=== PATIENT | female | born 1990 | race Caucasian/White ===

== ENCOUNTER 2016-11-11 21:13 | Inpatient (IN) | payer BC, OTHER ==
[~2016-11-11] VITALS: Ht 157.5 cm; Wt 56.8 kg
[~2016-11-11 21:13] MED LIST: PREN1TAB60 PO
[2016-11-11 23:47] LABS: ASPARTATE AMINO TRANSFERASE 957 U/L (15-37); BLOOD UREA NITROGEN 11 mg/dL (7-18)
[2016-11-12] MEDS ORDERED: SODIUM CHLORIDE FLUSH 10ML SYR IVF ONE (01:00)
[2016-11-12] MEDS ORDERED: SODIUM CHLORIDE 0.9% 1,000ML IVBOLUS ONE (01:00)
[2016-11-12 02:36] VITALS: BP 143/82
[2016-11-12] MEDS: ONDANSETRON 2MG/ML, 2ML IVPush PRN ×2 (02:45→23:52)
[2016-11-12] MEDS: NS + 20MEQ KCL 1,000 ML IV SCH ×2 (03:32→14:58)
[2016-11-12 05:41] LABS: BLOOD UREA NITROGEN 10 mg/dL (7-18)
[2016-11-12 05:55] LABS: ASPARTATE AMINO TRANSFERASE 694 U/L (15-37)
[2016-11-12 08:00] VITALS: BP 143/82
[2016-11-12] MEDS: CEFTRIAXONE PMX 1GM/50ML 50 ML IV SCH (12:42)
[2016-11-12 13:32] VITALS: BP 129/84
[2016-11-12] MEDS ORDERED: FENTANYL PF 250 MCG/5ML ONE (18:57)
[2016-11-12] MEDS ORDERED: MIDAZOLAM 1 MG/ML, 2ML ONE (18:57)
[2016-11-12] MEDS ORDERED: BUPIVACAINE/PF-EPI 0.5% 1:200K ONE (19:01)
[2016-11-12] MEDS ORDERED: ROCURONIUM 10 MG/ML ONE (19:10)
[2016-11-12] MEDS ORDERED: PROPOFOL 10 MG/ML, 20ML ONE (19:10)
[2016-11-12] MEDS ORDERED: DEXAMETHASONE 4 MG/ML, 1ML ONE (19:10)
[2016-11-12] MEDS ORDERED: CEFOTETAN 1 GM ONE (19:10)
[2016-11-12] MEDS ORDERED: ONDANSETRON 2MG/ML, 2ML ONE ×2 (19:10→20:08)
[2016-11-12] MEDS ORDERED: SUCCINYLCHOLINE 20 MG/ML, 10ML ONE (19:10)
[2016-11-12] MEDS ORDERED: OMNIPAQUE 350 MG/ML, 50 ML BOTTLE IV ONE ×2 (19:30→19:35)
[2016-11-12] MEDS ORDERED: BUPIVACAINE/PF-EPI 0.5% 1:200K INFIL ONE (19:30)
[2016-11-12] MEDS ORDERED: ACETAMINOPHEN 325 MG TABLET PO PRN (20:00)
[2016-11-12] MEDS ORDERED: LABETALOL 5MG/ML, 20ML IV PRN (20:00)
[2016-11-12] MEDS ORDERED: hydrALAzine 20 MG/ML, 1ML IV PRN (20:00)
[2016-11-12] MEDS ORDERED: METOCLOPRAMIDE 5 MG/ML, 2ML IV PRN (20:00)
[2016-11-12] MEDS ORDERED: OXYcodone 5 MG/5 ML ORAL.SOL UDC PO PRN (20:00)
[2016-11-12] MEDS ORDERED: ONDANSETRON 2MG/ML, 2ML IVPush PRN (20:00)
[2016-11-12] MEDS ORDERED: HYDROmorphone 2 MG/ML, 1ML ONE (20:08)
[2016-11-12] MEDS ORDERED: FENTANYL PF 100 MCG/2ML ONE (20:08)
[2016-11-12] MEDS: FENTANYL PF 100 MCG/2ML IV PRN ×2 (20:10→20:20)
[2016-11-12] MEDS: HYDROmorphone 1 MG/ML, 1ML IV PRN ×4 (20:15→21:45)
[2016-11-12] MEDS ORDERED: OXYcodone 5 MG/5 ML ORAL.SOL UDC ONE (22:16)
[2016-11-13 02:30] VITALS: BP 130/75
[2016-11-13] MEDS: morphine SULFATE 10 MG/ML, 1ML IVPush PRN ×4 (03:02→22:35)
[2016-11-13 05:07] LABS: BLOOD UREA NITROGEN 7 mg/dL (7-18)
[2016-11-13 05:16] LABS: ASPARTATE AMINO TRANSFERASE 327 U/L (15-37)
[2016-11-13] MEDS: ONDANSETRON 2MG/ML, 2ML IVPush PRN ×2 (06:16→09:16)
[2016-11-13 07:50] VITALS: BP 116/71
[2016-11-13] MEDS: CEFTRIAXONE PMX 1GM/50ML 50 ML IV SCH (12:57)
[2016-11-13 13:28] VITALS: BP 126/73
[2016-11-13 18:47] VITALS: BP 124/80
[2016-11-14 02:23] VITALS: BP 120/69
[2016-11-14 06:00] LABS: ASPARTATE AMINO TRANSFERASE 196 U/L (15-37); BLOOD UREA NITROGEN 8 mg/dL (7-18)
[2016-11-14 07:49] VITALS: BP 134/84
[2016-11-14] MEDS ORDERED: FENTANYL PF 100 MCG/2ML ONE (07:53)
[2016-11-14] MEDS ORDERED: MIDAZOLAM 1 MG/ML, 2ML ONE (07:53)
[2016-11-14] MEDS ORDERED: HYDROmorphone 2 MG/ML, 1ML ONE (08:14)
[2016-11-14] MEDS ORDERED: OXYcodone 5 MG/5 ML ORAL.SOL UDC ONE (08:49)
[2016-11-14] MEDS ORDERED: INDOMETHACIN 50 MG SUPP.RECT ONE (08:49)
[2016-11-14] MEDS ORDERED: OMNIPAQUE 350 MG/ML, 50 ML BOTTLE ONE (09:12)
[2016-11-14] MEDS ORDERED: INDOMETHACIN 50 MG SUPP.RECT PR ONE (09:30)
[2016-11-14] MEDS ORDERED: LACTATED RINGERS 1,000 ML IVBOLUS ONE (09:30)
[2016-11-14] MEDS: ONDANSETRON 2MG/ML, 2ML IVPush PRN (11:29)
[2016-11-14] MEDS: CEFTRIAXONE PMX 1GM/50ML 50 ML IV SCH (11:29)
[2016-11-14 12:57] VITALS: BP 113/69
[2016-11-14] MEDS: morphine SULFATE 10 MG/ML, 1ML IVPush PRN ×2 (14:19→20:27)
[2016-11-14 20:13] VITALS: BP 135/92
[2016-11-15 03:00] VITALS: BP 115/73
[2016-11-15] MEDS: morphine SULFATE 10 MG/ML, 1ML IVPush PRN (04:51)
[2016-11-15 05:05] LABS: ASPARTATE AMINO TRANSFERASE 118 U/L (15-37); BLOOD UREA NITROGEN 5 mg/dL (7-18)
[2016-11-15] MEDS ORDERED: ASA/APAP/ CAFFEINE TABLET PO PRN (05:30)
[2016-11-15 07:25] VITALS: BP 133/83
[2016-11-15] MEDS ORDERED: TRAM50TA2 PO (09:50)
[2016-11-15] MEDS ORDERED: ONDA4TAB13 SL (09:50)
[2016-11-15] MEDS: CEFTRIAXONE PMX 1GM/50ML 50 ML IV SCH (13:19)
== END 2016-11-15 14:19 | disposition home or self-care (01) | DRG 418 ==
LOC: ED 11-12 00:56 → EDIP 11-12 01:06 → SUATTDRO 11-12 01:35 → 3NE 11-12 02:14
PROC: BF101ZZ Fluoroscopy of Bile Ducts using Low Osmolar Contrast (ICD-10-PCS; 2016-11-12)
PROC: 0FT44ZZ Resection of Gallbladder, Percutaneous Endoscopic Approach (ICD-10-PCS; principal; 2016-11-12 18:30)
PROC: 0FC98ZZ Extirpation of Matter from Common Bile Duct, Via Natural or Artificial Opening Endoscopic (ICD-10-PCS; 2016-11-14)
PROC: BF131ZZ Fluoroscopy of Gallbladder and Bile Ducts using Low Osmolar Contrast (ICD-10-PCS; 2016-11-14)
DX: K80.60 Calculus of gallbladder and bile duct with cholecystitis, unspecified, without obstruction (principal); N39.0 Urinary tract infection, site not specified; G43.909 Migraine, unspecified, not intractable, without status migrainosus; Z79.899 Other long term (current) drug therapy; Z91.040 Latex allergy status
CPT/HCPCS: 36415; 74020; 74181; 74300; 74328; 76700; 80053; 81001; 83690; 84703; 85025; 85610; 86677; 87086; 88304; 96360; J0696; J1100; J1170; J2250; J2405; J2704; J3010; J3480; Q9967; J0330; J2270; J7030; J7120; S0074

== ENCOUNTER 2018-09-14 10:30 | Inpatient (IN) | payer BC, OTHER ==
[~2018-09-14] VITALS: Ht 157.5 cm; Wt 72.7 kg
[~2018-09-14 10:30] MED LIST changes: +ONDA4TAB13 SL; +TRAM50TA2 PO
[2018-09-14] MEDS: D5%-LACTATED RINGERS 1,000 ML IV SCH ×2 (10:57→18:57)
[2018-09-14] MEDS ORDERED: OXYTOCIN 30U/ 0.9% NaCL 500ML 500 ML IV ONE (10:57)
[2018-09-14] MEDS ORDERED: CALCIUM CARBONATE 500 MG TAB.CHEW PO PRN (11:00)
[2018-09-14] MEDS ORDERED: TERBUTALINE 1 MG/ML, 1ML IVPush PRN (11:00)
[2018-09-14] MEDS ORDERED: ONDANSETRON 2MG/ML, 2ML IVPush PRN (11:00)
[2018-09-14] MEDS ORDERED: FENTANYL PF 100 MCG/2ML IV PRN (11:00)
[2018-09-14] MEDS ORDERED: FENTANYL PF 100 MCG/2ML IVPush PRN (11:00)
[2018-09-14 11:13] VITALS: BP 143/100
[2018-09-14 11:26] LABS: BASOPHILS # (AUTO) 0.02 x10^3/uL (0-0.1); BASOPHILS % (AUTO) 0 % (0-1); EOSINOPHILS # (AUTO) 0.02 x10^3/uL (0-0.4); EOSINOPHILS % (AUTO) 0 % (1-7); LYMPHOCYTES % (AUTO) 20 % (22-44); MD NO; MEAN CORPUSCULAR HEMOGLOBIN 29.8 pg (27.0-34.8); MEAN CORPUSCULAR HGB CONC 33.9 g/dL (32.4-35.8); MEAN CORPUSCULAR VOLUME 87.7 fL (80-100); MEAN PLATELET VOLUME 8.7 fL (7.4-10.4); MONOCYTES # (AUTO) 0.47 x10^3/uL (0.2-0.8); MONOCYTES % (AUTO) 5 % (2-9); NEUTROPHILS # (AUTO) 6.51 x10^3/uL (1.8-6.8); NEUTROPHILS % (AUTO) 75 % (42-75); PLATELET COUNT 196 x10^3/uL (130-400); RED BLOOD COUNT 4.79 x10^6/uL (3.82-5.3); RED CELL DISTRIBUTION WIDTH 13.2 % (9.6-15.2)
[2018-09-14 11:34] LABS: ALBUMIN 2.8 g/dL (3.4-5.0); ANION GAP 6 mmol/L (5-15); CALCIUM 8.7 mg/dL (8.5-10.1); CHLORIDE 109 mmol/L (98-107)
[2018-09-14 11:38] LABS: ALANINE AMINOTRANSFERASE 15 U/L (12-78); ALKALINE PHOSPHATASE 187 U/L (45-117); BILIRUBIN,TOTAL 0.7 mg/dL (0.2-1.0); CREATININE 0.49 mg/dL (0.55-1.02); TOTAL PROTEIN 6.2 g/dL (6.4-8.2)
[2018-09-14] MEDS: LACTATED RINGERS 1,000 ML IV SCH ×2 (11:45→18:57)
[2018-09-14 11:47] VITALS: BP 147/98
[2018-09-14] MEDS ORDERED: NEWBORN KIT ONE (12:08)
[2018-09-14] MEDS ORDERED: LIDOCAINE 1%, 20ML ONE (12:08)
[2018-09-14] MEDS ORDERED: MISOPROSTOL 200 MCG TABLET ONE (12:08)
[2018-09-14] MEDS ORDERED: OXYTOCIN 30U/ 0.9% NaCL 500ML 500 ML ONE ×2 (12:09→17:23)
[2018-09-14] MEDS ORDERED: OXYTOCIN 30U/ 0.9% NaCL 500ML 500 ML IV PRN (12:10)
[2018-09-14 12:34] LABS: MICROSCOPIC INDICATED
[2018-09-14 12:40] LABS: PROTEIN/CREATININE RATIO,URINE < 233 (0-200); TOTAL PROTEIN,URINE RANDOM < 5 mg/dL (0-12)
[2018-09-14 13:45] LABS: AMPHETAMINE SCREEN, URINE Negative (Negative); BARBITURATE SCREEN, URINE Negative (Negative); BENZODIAZEPINE SCREEN, URINE Negative (Negative); CANNABINOID SCREEN, URINE Negative (Negative); COCAINE SCREEN, URINE Negative (Negative); METHADONE SCREEN, URINE Negative (Negative); OPIATE SCREEN, URINE Negative (Negative)
[2018-09-14] MEDS ORDERED: OXYTOCIN 30U/ 0.9% NaCL 500ML 500 ML IV SCH (17:15)
[2018-09-14] MEDS ORDERED: ACETAMINOPHEN 325 MG TABLET PO PRN (17:30)
[2018-09-14] MEDS ORDERED: MISOPROSTOL 200 MCG TABLET PR PRN (17:30)
[2018-09-14] MEDS ORDERED: OXYcodone/APAP 5/325MG TABLET PO PRN (17:30)
[2018-09-14] MEDS ORDERED: OXYcodone IR 5MG TABLET PO PRN (17:30)
[2018-09-14] MEDS ORDERED: METOCLOPRAMIDE 5 MG/ML, 2ML IV PRN (17:30)
[2018-09-14] MEDS ORDERED: ONDANSETRON 2MG/ML, 2ML IV PRN (17:30)
[2018-09-14] MEDS ORDERED: CARBOPROST TROMETHAMINE 250 MCG/ML, 1ML IM PRN (17:30)
[2018-09-14] MEDS ORDERED: DOCUSATE 100 MG CAPSULE PO PRN (17:30)
[2018-09-14] MEDS ORDERED: BISACODYL 10 MG SUPP PR PRN (17:30)
[2018-09-14] MEDS ORDERED: IBUPROFEN 600 MG TABLET PO PRN (17:30)
[2018-09-14 19:15] VITALS: BP 146/82
[2018-09-14] MEDS: IBUPROFEN 800 MG TABLET PO PRN (19:45)
[2018-09-15 00:48] VITALS: BP 122/75
[2018-09-15 04:10] VITALS: BP 124/74
[2018-09-15 05:01] LABS: BASOPHILS # (AUTO) 0.03 x10^3/uL (0-0.1); BASOPHILS % (AUTO) 0 % (0-1); EOSINOPHILS # (AUTO) 0.01 x10^3/uL (0-0.4); EOSINOPHILS % (AUTO) 0 % (1-7); LYMPHOCYTES # (AUTO) 2.64 x10^3/uL (1-3.4); LYMPHOCYTES % (AUTO) 20 % (22-44); MD NO; MEAN CORPUSCULAR HEMOGLOBIN 30.5 pg (27.0-34.8); MEAN CORPUSCULAR HGB CONC 34.2 g/dL (32.4-35.8); MEAN CORPUSCULAR VOLUME 89.1 fL (80-100); MEAN PLATELET VOLUME 8.6 fL (7.4-10.4); MONOCYTES # (AUTO) 0.77 x10^3/uL (0.2-0.8); MONOCYTES % (AUTO) 6 % (2-9); NEUTROPHILS # (AUTO) 9.62 x10^3/uL (1.8-6.8); NEUTROPHILS % (AUTO) 74 % (42-75); PLATELET COUNT 177 x10^3/uL (130-400); RED BLOOD COUNT 4.59 x10^6/uL (3.82-5.3); RED CELL DISTRIBUTION WIDTH 13.1 % (9.6-15.2)
[2018-09-15] MEDS: IBUPROFEN 800 MG TABLET PO PRN (05:17)
[2018-09-15 07:10] VITALS: BP 137/81
[2018-09-15] MEDS ORDERED: PRENATAL VIT/IRON/FA 1 EACH TABLET PO SCH (09:00)
[2018-09-15 11:50] VITALS: BP 135/89
== END 2018-09-15 17:55 | disposition home or self-care (01) | DRG 807 ==
LOC: LDOP 10:30 → LDIP 10:55 → 2NW 18:37
PROVIDERS: ADMIT Obstetrics & Gynecology; ATTEND Obstetrics & Gynecology
PROC: 10E0XZZ Delivery of Products of Conception, External Approach (ICD-10-PCS; principal; 2018-09-14)
DX: O80 Encounter for full-term uncomplicated delivery (principal); Z37.0 Single live birth; Z3A.39 39 weeks gestation of pregnancy; Z90.49 Acquired absence of other specified parts of digestive tract
CPT/HCPCS: 36415; 80053; 80307; 81001; 82570; 82803; 84156; 84550; 85025; 86850; 86900; 86923; G0378; J2590; J7120